=== PATIENT | female | born 1945 | race Caucasian/White ===

== ENCOUNTER → 2017-08-18 | Outpatient (CLI) | payer MEDICARE ==
[~2017-08-18] MED LIST: REGADENOSON 0.4 MG/5 ML SYRINGE ONE
== END | disposition home or self-care (01) ==
LOC: RAD 11:12
PROVIDERS: ATTEND Internal Medicine Cardiovascular Disease
DX: I45.10 Unspecified right bundle-branch block (principal); I10 Essential (primary) hypertension
CPT/HCPCS: 78452; 93017; A9502; J2785

== ENCOUNTER → 2018-04-13 | Outpatient (CLI) | payer MEDICARE | END | disposition home or self-care (01) | LOC: CACL 10:09 → CLISVCS 10:09 → CACL 11:37 → EDSTATUS 12:00 | PROVIDERS: ATTEND Internal Medicine Cardiovascular Disease | DX: I48.91 Unspecified atrial fibrillation (principal); Z53.9 Procedure and treatment not carried out, unspecified reason; I10 Essential (primary) hypertension; E78.5 Hyperlipidemia, unspecified; E11.9 Type 2 diabetes mellitus without complications; I34.0 Nonrheumatic mitral (valve) insufficiency; Z79.899 Other long term (current) drug therapy | CPT/HCPCS: 93005 ==

== ENCOUNTER 2018-08-12 07:25 | Inpatient (IN) | payer MEDICARE ==
[~2018-08-12] VITALS: Ht 160 cm; Wt 104.4 kg
[~2018-08-12 07:25] MED LIST changes: +APIX5TAB PO; +ATOR20TA37 PO; +BACITRACIN 50,000 UNIT ONE; +BUPIVACAINE 0.25% ONE; +BUPIVACAINE/PF 0.25% ONE; +BUPIVACAINE/PF-EPI 0.5% 1:200K ONE; +FENTANYL PF 100 MCG/2ML ONE; +HYDR-3245 PO; +HYDR25TA6 PO; +LOSA50TA14 PO; +MAGN400T7 PO; +MELA1TAB22 PO; +METF500T17 PO; +METO-95 PO; +NORT10CA PO; +OMEP-110 PO; -REGADENOSON 0.4 MG/5 ML SYRINGE ONE; +THROMBIN 20,000 UNIT VIAL TP ONE; +VANCOMYCIN 1,000 MG ONE
[2018-08-12] MEDS ORDERED: LACTATED RINGERS 1,000 ML IV SCH (08:02)
[2018-08-12 08:30] VITALS: BP 152/84
[2018-08-12] MEDS ORDERED: OxyconTIN ER 10 MG TAB.ER PO ONE (09:00)
[2018-08-12] MEDS ORDERED: ACETAMINOPHEN 500 MG TABLET PO ONE (09:00)
[2018-08-12] MEDS ORDERED: DIAZEPAM 5 MG TABLET PO ONE (09:00)
[2018-08-12] MEDS ORDERED: GABAPENTIN 300 MG CAPSULE PO ONE (09:00)
[2018-08-12] MEDS ORDERED: PROPOFOL 50 ML ONE ×2 (10:02→12:16)
[2018-08-12] MEDS ORDERED: FENTANYL PF 250 MCG/5ML ONE (10:02)
[2018-08-12] MEDS ORDERED: ALBUTEROL/IPRATROPIUM 2.5MG/0.5MG, 3 ML NPPB PRN (12:00)
[2018-08-12] MEDS ORDERED: METOPROLOL 1 MG/ML, 5ML IV PRN (12:00)
[2018-08-12] MEDS ORDERED: MEPERIDINE/PF 25MG/0.5ML IVPush PRN (12:00)
[2018-08-12] MEDS ORDERED: MIDAZOLAM 1 MG/ML, 2ML IV PRN (12:00)
[2018-08-12] MEDS ORDERED: OXYcodone 5 MG/5 ML ORAL.SOL UDC PO PRN (12:00)
[2018-08-12] MEDS ORDERED: DIAZEPAM 5 MG/ML, 2ML IVPush PRN (12:00)
[2018-08-12] MEDS ORDERED: HYDROmorphone 2 MG/ML, 1ML IVPush PRN (12:00)
[2018-08-12] MEDS ORDERED: ONDANSETRON 2MG/ML, 2ML IV PRN ×2 (12:00→15:30)
[2018-08-12] MEDS ORDERED: SCOPOLAMINE PATCH, 1.5MG PATCH.TD72 TD PRN (12:00)
[2018-08-12] MEDS ORDERED: PROMETHAZINE 25 MG/ML, 1ML IV PRN (12:00)
[2018-08-12] MEDS ORDERED: CEFAZOLIN 1,000 MG ONE ×2 (12:04→14:51)
[2018-08-12] MEDS ORDERED: ONDANSETRON 2MG/ML, 2ML ONE (12:04)
[2018-08-12] MEDS ORDERED: PROPOFOL 10 MG/ML, 20ML ONE (12:04)
[2018-08-12] MEDS ORDERED: DEXAMETHASONE 4 MG/ML, 1ML ONE (12:04)
[2018-08-12] MEDS ORDERED: BUPIVACAINE/PF 0.25% EPIDPUSH ONE (12:23)
[2018-08-12] MEDS ORDERED: FENTANYL PF 100 MCG/2ML EPIDPUSH ONE (12:24)
[2018-08-12] MEDS ORDERED: FENTANYL PF 100 MCG/2ML ONE (13:21)
[2018-08-12] MEDS ORDERED: OXYcodone 5 MG/5 ML ORAL.SOL UDC ONE (13:21)
[2018-08-12] MEDS: FENTANYL PF 100 MCG/2ML IV PRN ×2 (13:25→13:30)
[2018-08-12] MEDS ORDERED: HYDROmorphone 1 MG/ML, 1ML AMP ONE (13:52)
[2018-08-12] MEDS ORDERED: SUCCINYLCHOLINE 20 MG/ML, 10ML ONE (14:51)
[2018-08-12] MEDS ORDERED: ROCURONIUM 10MG/ML,5ML ONE (14:51)
[2018-08-12] MEDS ORDERED: OMEPRAZOLE 20 MG CAPSULE.DR PO PRN (15:30)
[2018-08-12] MEDS ORDERED: morphine SULFATE 10 MG/ML, 1ML IV PRN (15:30)
[2018-08-12] MEDS ORDERED: LABETALOL 5MG/ML, 20ML IV PRN (15:30)
[2018-08-12] MEDS ORDERED: PROMETHAZINE 25 MG/ML, 1ML IM PRN (15:30)
[2018-08-12] MEDS ORDERED: MAGNESIUM HYDROXIDE 8%, 30ML UDC PO PRN (15:30)
[2018-08-12] MEDS ORDERED: DIPHENHYDRAMINE 50 MG CAPSULE PO PRN (15:30)
[2018-08-12] MEDS ORDERED: BISACODYL 10 MG SUPP PR PRN (15:30)
[2018-08-12] MEDS ORDERED: OXYcodone/APAP 5/325MG TABLET PO PRN (15:30)
[2018-08-12] MEDS ORDERED: DIPHENHYDRAMINE 50 MG/ML, 1ML IM PRN (15:30)
[2018-08-12] MEDS: INSULIN REGULAR 100 UNITS/ML, 3ML VIAL SQ-INSULIN SCH ×2 (16:00→22:14)
[2018-08-12] MEDS: metFORMIN 500 MG TABLET PO SCH (16:35)
[2018-08-12] MEDS: NS + 20MEQ KCL 1,000 ML IV SCH (16:35)
[2018-08-12] MEDS: MAGNESIUM OXIDE 400 MG TABLET PO SCH (18:13)
[2018-08-12 19:10] VITALS: BP 149/87
[2018-08-12] MEDS: CEFAZOLIN PMX 1GM/50ML 50 ML IVPB SCH (20:00)
[2018-08-12] MEDS: DOXYCYCLINE 100MG TABLET PO SCH (20:01)
[2018-08-12] MEDS: METOPROLOL SUCCINATE 100 MG TAB.ER.24H PO SCH (20:01)
[2018-08-12] MEDS: LOSARTAN 50MG TABLET PO SCH (20:01)
[2018-08-12] MEDS: CYCLOBENZAPRINE 10 MG TABLET PO PRN (20:05)
[2018-08-12] MEDS: ATORVASTATIN 20 MG TABLET PO SCH (20:05)
[2018-08-12] MEDS: NORTRIPTYLINE 10 MG CAPSULE PO SCH (20:06)
[2018-08-12] MEDS ORDERED: ZOLPIDEM 5MG TABLET PO PRN (21:00)
[2018-08-12] MEDS: HYDROcodone/APAP 10/325 MG TABLET PO PRN (22:13)
[2018-08-13 02:07] VITALS: BP 137/82
[2018-08-13] MEDS: CEFAZOLIN PMX 1GM/50ML 50 ML IVPB SCH (03:36)
[2018-08-13] MEDS: NS + 20MEQ KCL 1,000 ML IV SCH ×2 (04:35→16:27)
[2018-08-13] MEDS: MAGNESIUM OXIDE 400 MG TABLET PO SCH ×2 (05:05→17:50)
[2018-08-13] MEDS: ENOXAPARIN 40 MG/0.4 ML SQ SCH (05:05)
[2018-08-13 05:49] LABS: BASOPHILS # (AUTO) 0.01 x10^3/uL (0-0.1); BASOPHILS % (AUTO) 0 % (0-1); EOSINOPHILS % (AUTO) 0 % (1-7); LYMPHOCYTES # (AUTO) 0.94 x10^3/uL (1-3.4); LYMPHOCYTES % (AUTO) 8 % (22-44); MD NO; MEAN CORPUSCULAR HGB CONC 32.2 g/dL (32.4-35.8); MEAN CORPUSCULAR VOLUME 93.1 fL (80-100); MEAN PLATELET VOLUME 9.6 fL (7.4-10.4); MONOCYTES # (AUTO) 0.56 x10^3/uL (0.2-0.8); MONOCYTES % (AUTO) 5 % (2-9); NEUTROPHILS # (AUTO) 10.09 x10^3/uL (1.8-6.8); NEUTROPHILS % (AUTO) 87 % (42-75); PLATELET COUNT 283 x10^3/uL (130-400); RED BLOOD COUNT 3.68 x10^6/uL (3.82-5.3); RED CELL DISTRIBUTION WIDTH 13.6 % (9.6-15.2)
[2018-08-13 05:57] LABS: ANION GAP 5 mmol/L (5-15); CALCIUM 8.8 mg/dL (8.5-10.1); CHLORIDE 107 mmol/L (98-107); CREATININE 0.93 mg/dL (0.55-1.02)
[2018-08-13 07:00] VITALS: BP 129/84
[2018-08-13] MEDS: INSULIN REGULAR 100 UNITS/ML, 3ML VIAL SQ-INSULIN SCH ×4 (07:00→20:14)
[2018-08-13] MEDS: HYDROCHLOROTHIAZIDE 25 MG TABLET PO SCH (07:47)
[2018-08-13] MEDS: SENNA/DOCUSATE TABLET PO SCH (07:47)
[2018-08-13] MEDS: metFORMIN 500 MG TABLET PO SCH ×2 (07:47→17:00)
[2018-08-13] MEDS: DOXYCYCLINE 100MG TABLET PO SCH ×2 (07:48→21:00)
[2018-08-13] MEDS: HYDROcodone/APAP 10/325 MG TABLET PO PRN ×4 (11:56→21:00)
[2018-08-13 13:30] VITALS: BP 126/70
[2018-08-13] MEDS: CYCLOBENZAPRINE 10 MG TABLET PO PRN (17:14)
[2018-08-13 18:49] VITALS: BP 127/76
[2018-08-13] MEDS: ATORVASTATIN 20 MG TABLET PO SCH (21:00)
[2018-08-13] MEDS: LOSARTAN 50MG TABLET PO SCH (21:00)
[2018-08-13] MEDS: METOPROLOL SUCCINATE 100 MG TAB.ER.24H PO SCH (21:00)
[2018-08-13] MEDS: NORTRIPTYLINE 10 MG CAPSULE PO SCH (21:01)
[2018-08-14] MEDS: NS + 20MEQ KCL 1,000 ML IV SCH (00:51)
[2018-08-14] MEDS: CYCLOBENZAPRINE 10 MG TABLET PO PRN (01:14)
[2018-08-14] MEDS: HYDROcodone/APAP 10/325 MG TABLET PO PRN ×3 (01:14→09:27)
[2018-08-14 04:06] VITALS: BP 133/77
[2018-08-14] MEDS: MAGNESIUM OXIDE 400 MG TABLET PO SCH (04:52)
[2018-08-14] MEDS: ENOXAPARIN 40 MG/0.4 ML SQ SCH (04:53)
[2018-08-14] MEDS: INSULIN REGULAR 100 UNITS/ML, 3ML VIAL SQ-INSULIN SCH (06:34)
[2018-08-14 07:24] LABS: BASOPHILS # (AUTO) 0.09 x10^3/uL (0-0.1); BASOPHILS % (AUTO) 1 % (0-1); EOSINOPHILS # (AUTO) 0.25 x10^3/uL (0-0.4); EOSINOPHILS % (AUTO) 3 % (1-7); LYMPHOCYTES # (AUTO) 3.12 x10^3/uL (1-3.4); LYMPHOCYTES % (AUTO) 32 % (22-44); MD NO; MEAN CORPUSCULAR HEMOGLOBIN 30.4 pg (27.0-34.8); MEAN CORPUSCULAR HGB CONC 32.5 g/dL (32.4-35.8); MEAN CORPUSCULAR VOLUME 93.5 fL (80-100); MEAN PLATELET VOLUME 9.5 fL (7.4-10.4); MONOCYTES # (AUTO) 0.58 x10^3/uL (0.2-0.8); MONOCYTES % (AUTO) 6 % (2-9); NEUTROPHILS # (AUTO) 5.63 x10^3/uL (1.8-6.8); NEUTROPHILS % (AUTO) 58 % (42-75); PLATELET COUNT 248 x10^3/uL (130-400); RED BLOOD COUNT 3.36 x10^6/uL (3.82-5.3); RED CELL DISTRIBUTION WIDTH 13.6 % (9.6-15.2)
[2018-08-14 07:27] LABS: ANION GAP 3 mmol/L (5-15); CALCIUM 8.8 mg/dL (8.5-10.1); CHLORIDE 109 mmol/L (98-107)
[2018-08-14 07:28] LABS: CREATININE 0.78 mg/dL (0.55-1.02)
[2018-08-14] MEDS: metFORMIN 500 MG TABLET PO SCH (08:05)
[2018-08-14] MEDS: DOXYCYCLINE 100MG TABLET PO SCH (08:05)
[2018-08-14] MEDS: SENNA/DOCUSATE TABLET PO SCH (08:05)
[2018-08-14] MEDS: HYDROCHLOROTHIAZIDE 25 MG TABLET PO SCH (08:05)
[2018-08-14 08:31] VITALS: BP 99/55
[2018-08-14] MEDS ORDERED: HYDR-3307 PO (09:03)
[2018-08-14] MEDS ORDERED: DOXY100T PO (09:04)
[2018-08-14] MEDS ORDERED: CYCL-259 PO (09:04)
== END 2018-08-14 10:25 | disposition home or self-care (01) | DRG 516 ==
LOC: OUT 07:25 → 4NOR 14:40 → OUT 15:23
PROVIDERS: ADMIT Neurological Surgery; ATTEND Neurological Surgery
PROC: 4A11X4G Monitoring of Peripheral Nervous Electrical Activity, Intraoperative, External Approach (ICD-10-PCS; 2018-08-12)
PROC: 01NB0ZZ Release Lumbar Nerve, Open Approach (ICD-10-PCS; principal; 2018-08-12 07:00)
DX: M48.062 Spinal stenosis, lumbar region with neurogenic claudication (principal); Z68.41 Body mass index [BMI] 40.0-44.9, adult; M48.07 Spinal stenosis, lumbosacral region; M51.16 Intervertebral disc disorders with radiculopathy, lumbar region; M51.37 Other intervertebral disc degeneration, lumbosacral region; E66.01 Morbid (severe) obesity due to excess calories; I48.0 Paroxysmal atrial fibrillation; I10 Essential (primary) hypertension; E11.9 Type 2 diabetes mellitus without complications; E78.5 Hyperlipidemia, unspecified; K21.9 Gastro-esophageal reflux disease without esophagitis; G89.29 Other chronic pain
CPT/HCPCS: 36415; 72100; 80048; 82962; 85025; G0378; J0690; J1100; J1170; J1650; J1815; J2405; J2704; J3010; J3360; J3370; J3480; J3490; J0330; J7120

== ENCOUNTER 2018-10-07 10:25 | Observation (INO) | payer MEDICARE ==
[~2018-10-07] VITALS: Ht 160 cm; Wt 104.5 kg
[~2018-10-07 10:25] MED LIST changes: -BACITRACIN 50,000 UNIT ONE; -BUPIVACAINE 0.25% ONE; -BUPIVACAINE/PF 0.25% ONE; -BUPIVACAINE/PF-EPI 0.5% 1:200K ONE; +CYCL-259 PO; +DOXY100T PO; -FENTANYL PF 100 MCG/2ML ONE; +HYDR-3307 PO; -THROMBIN 20,000 UNIT VIAL TP ONE; -VANCOMYCIN 1,000 MG ONE
[2018-10-07] MEDS ORDERED: LACTATED RINGERS 1,000 ML IV SCH (11:03)
[2018-10-07 11:46] VITALS: BP 135/86
[2018-10-07] MEDS ORDERED: FENTANYL PF 250 MCG/5ML ONE (13:34)
[2018-10-07] MEDS ORDERED: NEOSTIGMINE 1 MG/ML, 10ML ONE (13:35)
[2018-10-07] MEDS ORDERED: ROCURONIUM 10MG/ML,5ML ONE (13:35)
[2018-10-07] MEDS ORDERED: DEXAMETHASONE 4 MG/ML, 1ML ONE (13:35)
[2018-10-07] MEDS ORDERED: PROPOFOL 10 MG/ML, 20ML ONE (13:35)
[2018-10-07] MEDS ORDERED: CEFAZOLIN 1,000 MG ONE (13:35)
[2018-10-07] MEDS ORDERED: GLYCOPYRROLATE 0.2MG/1ML, 5ML ONE (13:35)
[2018-10-07] MEDS ORDERED: ONDANSETRON 2MG/ML, 2ML ONE (13:35)
[2018-10-07] MEDS ORDERED: MORPHINE SULFATE 4 MG/ML, 1ML IVPush PRN (14:30)
[2018-10-07] MEDS ORDERED: hydrALAzine 20 MG/ML, 1ML IV PRN (14:30)
[2018-10-07] MEDS ORDERED: LABETALOL 5MG/ML, 20ML IV PRN (14:30)
[2018-10-07] MEDS ORDERED: PROMETHAZINE 12.5 MG SUPP PR PRN (14:30)
[2018-10-07] MEDS ORDERED: MEPERIDINE/PF 25MG/0.5ML IVPush PRN (14:30)
[2018-10-07] MEDS ORDERED: PROMETHAZINE 25 MG/ML, 1ML IV PRN (14:30)
[2018-10-07] MEDS ORDERED: PROMETHAZINE 25 MG SUPP PR PRN (14:30)
[2018-10-07] MEDS ORDERED: OXYcodone 5 MG/5 ML ORAL.SOL UDC PO PRN (14:30)
[2018-10-07] MEDS ORDERED: ONDANSETRON 2MG/ML, 2ML IV PRN (14:30)
[2018-10-07] MEDS ORDERED: ONDANSETRON ODT 8 MG PO PRN (14:30)
[2018-10-07] MEDS ORDERED: PROMETHAZINE 25 MG/ML, 1ML IM PRN ×3 (14:30→15:30)
[2018-10-07] MEDS ORDERED: VANCOMYCIN 1,000 MG ONE (14:54)
[2018-10-07] MEDS ORDERED: FENTANYL PF 100 MCG/2ML ONE ×2 (15:22→16:14)
[2018-10-07] MEDS ORDERED: HYDROmorphone 2 MG/ML, 1ML ONE (15:22)
[2018-10-07] MEDS ORDERED: OXYcodone 5 MG/5 ML ORAL.SOL UDC ONE (15:22)
[2018-10-07] MEDS: HYDROmorphone 2 MG/ML, 1ML IVPush PRN ×4 (15:28→16:02)
[2018-10-07] MEDS: FENTANYL PF 100 MCG/2ML IV PRN ×4 (15:28→16:32)
[2018-10-07] MEDS ORDERED: HYDROcodone/APAP 5/325 TABLET PO PRN (15:30)
[2018-10-07] MEDS ORDERED: SENNA/DOCUSATE TABLET PO PRN (15:30)
[2018-10-07] MEDS ORDERED: morphine SULFATE 10 MG/ML, 1ML IVPush PRN (15:30)
[2018-10-07] MEDS ORDERED: METHOCARBAMOL 750 MG TABLET PO PRN (15:30)
[2018-10-07] MEDS ORDERED: PHARMACY MAY ADJ FOR RENAL FX MC PRN (15:30)
[2018-10-07] MEDS ORDERED: DIPHENHYDRAMINE 50 MG/ML, 1ML IVPush PRN (15:30)
[2018-10-07] MEDS ORDERED: HYDROcodone/APAP 10/325 MG TABLET PO PRN (15:30)
[2018-10-07] MEDS ORDERED: OXYcodone/APAP 5/325MG TABLET PO PRN (15:30)
[2018-10-07] MEDS ORDERED: BISACODYL 10 MG SUPP PR PRN (15:30)
[2018-10-07] MEDS ORDERED: OMEPRAZOLE 20 MG CAPSULE.DR PO PRN (15:30)
[2018-10-07] MEDS ORDERED: CYCLOBENZAPRINE 10 MG TABLET PO PRN (15:30)
[2018-10-07] MEDS ORDERED: ONDANSETRON 2MG/ML, 2ML IVPush PRN (15:30)
[2018-10-07] MEDS ORDERED: METHOCARBAMOL 750 MG TABLET ONE (15:31)
[2018-10-07] MEDS ORDERED: MEPERIDINE/PF 25MG/ML,1ML ONE (15:52)
[2018-10-07] MEDS ORDERED: PROMETHAZINE 25 MG/ML, 1ML ONE (15:52)
[2018-10-07] MEDS ORDERED: MORPHINE SULFATE 4 MG/ML, 1ML ONE (16:31)
[2018-10-07] MEDS ORDERED: NS + 20MEQ KCL 1,000 ML IV SCH (18:00)
[2018-10-07 18:54] VITALS: BP 139/92
[2018-10-07] MEDS: MAGNESIUM OXIDE 400 MG TABLET PO SCH (20:42)
[2018-10-07] MEDS: metFORMIN 500 MG TABLET PO SCH (20:43)
[2018-10-07] MEDS: HYDROcodone/APAP 10/325 MG TABLET PO PRN (20:43)
[2018-10-07] MEDS: SODIUM CHLORIDE FLUSH 10ML SYR IVF SCH (20:44)
[2018-10-07] MEDS ORDERED: APIXABAN 5 MG TABLET PO SCH (21:00)
[2018-10-07] MEDS ORDERED: LOSARTAN 50MG TABLET PO SCH (21:00)
[2018-10-07] MEDS ORDERED: MELATONIN 3 MG TABLET PO SCH (21:00)
[2018-10-07] MEDS ORDERED: METOPROLOL SUCCINATE 100 MG TAB.ER.24H PO SCH (21:00)
[2018-10-07] MEDS ORDERED: ATORVASTATIN 20 MG TABLET PO SCH (21:00)
[2018-10-07] MEDS ORDERED: NORTRIPTYLINE 10 MG CAPSULE PO SCH (21:00)
[2018-10-08] MEDS: HYDROcodone/APAP 10/325 MG TABLET PO PRN ×3 (00:50→09:12)
[2018-10-08 00:57] VITALS: BP 154/84
[2018-10-08] MEDS: CEFAZOLIN PMX 1GM/50ML 50 ML IVPB SCH ×2 (01:11→09:12)
[2018-10-08 05:13] VITALS: BP 155/90
[2018-10-08 06:55] VITALS: BP 124/75
[2018-10-08] MEDS: SODIUM CHLORIDE FLUSH 10ML SYR IVF SCH (07:18)
[2018-10-08] MEDS ORDERED: HYDROCHLOROTHIAZIDE 25 MG TABLET PO SCH (09:00)
[2018-10-08] MEDS: metFORMIN 500 MG TABLET PO SCH (09:12)
[2018-10-08] MEDS: MAGNESIUM OXIDE 400 MG TABLET PO SCH (09:12)
[2018-10-08] MEDS ORDERED: SULF1TAB24 PO (09:30)
[2018-10-08] MEDS ORDERED: METH750T87 PO (09:30)
[2018-10-08 10:33] VITALS: BP 154/83
== END 2018-10-08 11:20 | disposition home or self-care (01) ==
LOC: OUT 10:25 → ORIP 15:20 → 4NOR 16:45 → DCLOUNGE 10-08 11:08
PROVIDERS: ADMIT Neurological Surgery; ATTEND Neurological Surgery
DX: T81.32XA Disruption of internal operation (surgical) wound, not elsewhere classified, initial encounter (principal); M79.89 Other specified soft tissue disorders; E78.5 Hyperlipidemia, unspecified; I10 Essential (primary) hypertension; I48.91 Unspecified atrial fibrillation; L76.34 Postprocedural seroma of skin and subcutaneous tissue following other procedure; K21.9 Gastro-esophageal reflux disease without esophagitis; Z87.891 Personal history of nicotine dependence
CPT/HCPCS: 11043; 82962; 96365; 96366; 97161; 97166; 97535; G0378; J0690; J1100; J1170; J2175; J2270; J2405; J2550; J2704; J2710; J3010; J3370; J3480; J7120